=== PATIENT | female | born 1990 | race African-American/Black ===

== ENCOUNTER 2017-09-21 15:40 | Emergency (ER) | payer MEDICAID ==
[~2017-09-21] VITALS: Ht 170.2 cm; Wt 54.0 kg
[2017-09-21] MEDS ORDERED: SODIUM CHLORIDE 0.9% 1,000 ML IV ONE ×2 (17:26→20:42)
[2017-09-21] MEDS ORDERED: KETOROLAC 30MG/ML VIAL IV STA (17:26)
[2017-09-21 17:54] LABS: BASOPHILS % 0.6 % (0.0-2.0); EOSINOPHILS % 0.1 % (0.0-5.0); HEMATOCRIT. 37.1 % (36.0-48.0); HEMOGLOBIN. 12.3 g/dL (12.0-16.0); MEAN CORPUSCULAR HEMOGLOBIN 28.9 pg (28.0-32.0); MEAN CORPUSCULAR VOLUME 86.7 fL (81.0-99.0); MEAN PLATELET VOLUME 8.5 fl (7.4-10.4); MONOCYTES % 12.5 % (2.0-8.0); NEUTROPHILS % 72.8 % (40.0-76.0); PLATELET 233 x1000/uL (130-400); RED BLOOD CELL COUNT 4.27 mill/uL (4.2-5.4); RED CELL DISTRIBUTION WIDTH 12.3 % (11.6-14.6)
[2017-09-21 18:07] LABS: CARBON DIOXIDE 28 mEq/L (21-32); CHLORIDE 100 mEq/L (98-107)
[2017-09-21 18:17] LABS: HCG SCREEN NEGATIVE
[2017-09-21] MEDS ORDERED: PENICILLIN G BENZATHINE 1,200,000 UNITS/2ML SYR IM ONE (18:45)
[2017-09-21 19:20] LABS: CLARITY URINE CLEAR (CLEAR); COLOR URINE YELLOW (YELLOW); GLUCOSE URINE NEGATIVE (NEGATIVE); KETONES URINE 1+ (NEGATIVE); LEUKOCYTE ESTERASE URINE NEGATIVE (NEGATIVE); NITRITE URINE NEGATIVE (NEGATIVE); OCCULT BLOOD URINE 2+ (NEGATIVE); PH URINE 7.5 (4.5-8.0); PROTEIN URINE NEGATIVE (NEGATIVE)
[2017-09-21] MEDS ORDERED: ACETAMINOPHEN 325MG TABLET PO ONE ×2 (20:00→20:45)
[2017-09-21] MEDS ORDERED: DEXAMETHASONE 10 MG/ML VIAL IV ONE (21:45)
[2017-09-21] MEDS ORDERED: CLINDAMYCIN 600 MG in DEXTROSE 5% WATER 50 ML IV ONE (21:45)
[2017-09-21] MEDS ORDERED: IPRATROPIUM/ALBUTEROL 0.5-3(2.5)MG/3ML NEB INH PRN (22:15)
[2017-09-21] MEDS ORDERED: GUAIFENESIN 200MG/10ML SUGAR FREE UDC PO PRN (22:15)
[2017-09-21] MEDS ORDERED: MAGNESIUM/ALUMINUM HYDROXIDE/SIMETHICONE 30ML UDC PO PRN (22:15)
[2017-09-21] MEDS ORDERED: DOCUSATE SODIUM 100MG CAPSULE PO PRN (22:15)
[2017-09-21] MEDS ORDERED: DIPHENHYDRAMINE 50MG/ML VIAL IV PRN (22:15)
[2017-09-21] MEDS ORDERED: ZOLPIDEM TARTRATE 5MG TABLET PO PRN (22:15)
[2017-09-21] MEDS ORDERED: LORAZEPAM 0.5MG TABLET PO PRN (22:15)
[2017-09-21] MEDS ORDERED: KETOROLAC 15MG/ML VIAL IV PRN (22:15)
[2017-09-21] MEDS ORDERED: ACETAMINOPHEN 325MG TABLET PO PRN (22:15)
[2017-09-21] MEDS ORDERED: CLONIDINE 0.1MG TABLET PO PRN (22:15)
[2017-09-21] MEDS ORDERED: ONDANSETRON HCL 4MG/2ML VIAL IV PRN (22:15)
[2017-09-21] MEDS ORDERED: NA PHOS,M-B/NA PHOS,DI-BA ENEMA 118ML PR PRN (22:15)
[2017-09-21 22:57] VITALS: BP 107/66
[2017-09-22 01:35] LABS: *AMPHETAMINES SCREEN URINE NEGATIVE (NEGATIVE); *BARBITURATES SCREEN URINE NEGATIVE (NEGATIVE); *BENZODIAZEPINES SCREEN URINE NEGATIVE (NEGATIVE); *COCAINE SCREEN URINE NEGATIVE (NEGATIVE); METHADONE URINE SCREEN NEGATIVE (NEGATIVE); OPIATES URINE SCREEN NEGATIVE (NEGATIVE); PHENCYCLIDINE URINE SCREEN NEGATIVE (NEGATIVE)
[2017-09-22 02:51] LABS: CANNABINOID URINE SCREEN PRESUMTIVE POSITIVE (NEGATIVE)
[2017-09-22] MEDS ORDERED: CLINDAMYCIN 600 MG in DEXTROSE 5% WATER 50 ML IV SCH (06:00)
[2017-09-22] MEDS ORDERED: FAMOTIDINE 20MG/2ML VIAL IV SCH (09:00)
== END 2017-09-21 23:18 | disposition left against medical advice (07) ==
LOC: ER 16:20 → CANBEDREQ 22:57 → ER 23:18
DX: J02.9 Acute pharyngitis, unspecified (principal); R10.9 Unspecified abdominal pain; F12.10 Cannabis abuse, uncomplicated
CPT/HCPCS: 36415; 80053; 80305; 81001; 83036; 84703; 85025; 87070; 87430; 96361; 96365; 96372; 96375; 99284; J0561; J1100; J1885; J3490; J7030; Z7610; 87491; 87591; J7060

== ENCOUNTER 2018-11-15 16:25 | Emergency (ER) | payer MEDICAID | END 2018-11-15 17:22 | disposition left against medical advice (07) | LOC: ER 16:25 | DX: Z53.21 Procedure and treatment not carried out due to patient leaving prior to being seen by health care provider (principal) ==

== ENCOUNTER 2018-11-15 17:54 | Emergency (ER) | payer MEDICAID ==
[~2018-11-15] VITALS: Ht 172.7 cm; Wt 65.0 kg
[2018-11-15 21:37] VITALS: BP 115/85
== END 2018-11-15 21:40 | disposition home or self-care (01) ==
LOC: ER 17:54
DX: Z48.02 Encounter for removal of sutures (principal)
CPT/HCPCS: 99281

== ENCOUNTER 2019-10-21 16:39 | Emergency (ER) | payer MEDICAID ==
[~2019-10-21] VITALS: Ht 170.2 cm; Wt 64.0 kg
[2019-10-21] MEDS ORDERED: SODIUM CHLORIDE 0.9% 1,000 ML IV ONE (17:30)
[2019-10-21] MEDS ORDERED: ONDANSETRON HCL 4MG/2ML INJ IV ONE (17:30)
[2019-10-21] MEDS ORDERED: CEFTRIAXONE SODIUM 250 MG/VIAL IM ONE (17:30)
[2019-10-21] MEDS ORDERED: VALACYCLOVIR HCL 500MG TABLET PO ONE (17:30)
[2019-10-21] MEDS ORDERED: AZITHROMYCIN 500 MG TABLET PO ONE (17:30)
[2019-10-21 17:41] LABS: CLARITY URINE CLEAR (CLEAR); COLOR URINE YELLOW (YELLOW); KETONES URINE NEGATIVE (NEGATIVE); LEUKOCYTE ESTERASE URINE NEGATIVE (NEGATIVE); NITRITE URINE NEGATIVE (NEGATIVE); OCCULT BLOOD URINE NEGATIVE (NEGATIVE); PROTEIN URINE NEGATIVE (NEGATIVE); SPECIFIC GRAVITY URINE 1.001 (1.005-1.030); UROBILINOGEN URINE 0.2 E.U./dL (0.2-1.0)
[2019-10-21] MEDS ORDERED: METRONIDAZOLE 500MG TABLET PO NR (19:45)
[2019-10-21 20:04] VITALS: BP 111/75
[2019-10-24 08:10] LABS: CHLAMYDIA TRACHOMATIS NAA Negative (Negative); NEISSERIA GONORRHOEAE NAA Negative (Negative)
== END 2019-10-21 20:04 | disposition home or self-care (01) ==
LOC: ER 16:39
DX: T76.21XA Adult sexual abuse, suspected, initial encounter (principal); B00.9 Herpesviral infection, unspecified; N76.0 Acute vaginitis
CPT/HCPCS: 36415; 81003; 81025; 86592; 86703; 86803; 87210; 87491; 87591; 96372; 96374; 99284; J0696; J2405; J7030

== ENCOUNTER 2019-12-19 11:03 | Emergency (ER) | payer MEDICAID ==
[2019-12-19] MEDS ORDERED: LIDOCAINE HCL 1% 20ML VIAL (Pyxis) INJ INFIL ONE (13:30)
[2019-12-19] MEDS ORDERED: CEFTRIAXONE SODIUM 250 MG/VIAL IM ONE (13:30)
[2019-12-19] MEDS ORDERED: AZITHROMYCIN 500 MG TABLET PO ONE (13:30)
[2019-12-19 13:37] VITALS: BP 138/50
== END 2019-12-19 13:38 | disposition home or self-care (01) ==
LOC: ER 11:03
DX: A74.9 Chlamydial infection, unspecified (principal); A54.9 Gonococcal infection, unspecified; A64 Unspecified sexually transmitted disease
CPT/HCPCS: 81025; 87210; 87491; 87591; 96372; 99283; J0696; J3490

== ENCOUNTER 2020-01-30 09:49 | Emergency (ER) | payer MEDICAID ==
[~2020-01-30] VITALS: Ht 170.2 cm; Wt 63.2 kg
[2020-01-30 09:51] VITALS: BP 133/80
[2020-01-30 10:22] LABS: CLARITY URINE CLEAR (CLEAR); COLOR URINE YELLOW (YELLOW); KETONES URINE 3+ (NEGATIVE); LEUKOCYTE ESTERASE URINE NEGATIVE (NEGATIVE); NITRITE URINE NEGATIVE (NEGATIVE); OCCULT BLOOD URINE NEGATIVE (NEGATIVE); PROTEIN URINE NEGATIVE (NEGATIVE); SPECIFIC GRAVITY URINE 1.011 (1.005-1.030); UROBILINOGEN URINE 0.2 E.U./dL (0.2-1.0)
[2020-01-30] MEDS ORDERED: FAMOTIDINE 20MG TABLET PO ONE (10:30)
[2020-01-30] MEDS ORDERED: ONDANSETRON 4MG ODT PO ONE (10:30)
== END 2020-01-30 10:39 | disposition home or self-care (01) ==
LOC: ER 10:38
DX: K29.00 Acute gastritis without bleeding (principal); F12.10 Cannabis abuse, uncomplicated
CPT/HCPCS: 81003; 81025; 99283; Q0162

== ENCOUNTER 2020-02-21 15:09 | Emergency (ER) | payer MEDICAID ==
[~2020-02-21] VITALS: Ht 170.2 cm; Wt 58.4 kg
[2020-02-21 15:29] VITALS: BP 134/74
[2020-02-21] MEDS ORDERED: LIDOCAINE HCL 1% 20ML VIAL (Pyxis) INJ INFIL ONE (16:00)
[2020-02-21] MEDS ORDERED: AZITHROMYCIN 500 MG TABLET PO ONE (16:00)
[2020-02-21] MEDS ORDERED: CEFTRIAXONE SODIUM 1 G/VIAL IM ONE (16:00)
== END 2020-02-21 16:09 | disposition home or self-care (01) ==
LOC: ER 15:09
DX: A64 Unspecified sexually transmitted disease (principal); F12.10 Cannabis abuse, uncomplicated
CPT/HCPCS: 81025; 96372; 99283; J0696; J3490

== ENCOUNTER 2020-03-02 20:34 | Emergency (ER) | payer MEDICAID ==
[~2020-03-02] VITALS: Ht 170.2 cm; Wt 59.3 kg
[2020-03-02] MEDS ORDERED: KETOROLAC 30MG/ML VIAL IV STA (21:39)
[2020-03-02] MEDS ORDERED: SODIUM CHLORIDE 0.9% 1,000 ML IV ONE (21:39)
[2020-03-02 21:55] LABS: BASOPHILS % 1.1 % (0.0-2.0); EOSINOPHILS % 4.2 % (0.0-5.0); HEMATOCRIT. 37.6 % (36.0-48.0); HEMOGLOBIN. 12.6 g/dL (12.0-16.0); LYMPHOCYTES % 48.8 % (20.0-50.0); MEAN CORPUSCULAR HEMOGLOBIN 29.1 pg (28.0-32.0); MEAN CORPUSCULAR VOLUME 86.8 fL (81.0-99.0); MONOCYTES % 6.4 % (2.0-8.0); NEUTROPHILS % 39.5 % (40.0-76.0); PLATELET 244 x1000/uL (130-400); RED BLOOD CELL COUNT 4.33 mill/uL (4.2-5.4); RED CELL DISTRIBUTION WIDTH 12.4 % (11.6-14.6)
[2020-03-02 22:00] LABS: CHLORIDE 107 mEq/L (98-107)
[2020-03-02 22:02] LABS: CLARITY URINE CLEAR (CLEAR); COLOR URINE YELLOW (YELLOW); KETONES URINE NEGATIVE (NEGATIVE); LEUKOCYTE ESTERASE URINE NEGATIVE (NEGATIVE); NITRITE URINE NEGATIVE (NEGATIVE); OCCULT BLOOD URINE NEGATIVE (NEGATIVE); PH URINE 7.5 (4.5-8.0); PROTEIN URINE NEGATIVE (NEGATIVE); SPECIFIC GRAVITY URINE 1.006 (1.005-1.030); UROBILINOGEN URINE 0.2 E.U./dL (0.2-1.0)
[2020-03-02 23:31] VITALS: BP 107/71
== END 2020-03-02 23:34 | disposition home or self-care (01) ==
LOC: ER 20:34
DX: R07.89 Other chest pain (principal); F12.10 Cannabis abuse, uncomplicated
CPT/HCPCS: 36415; 71045; 80053; 81003; 81025; 85025; 93005; 96374; 99285; J1885; J7030

== ENCOUNTER 2020-03-31 01:12 | Emergency (ER) | payer MEDICAID ==
[~2020-03-31] VITALS: Ht 167.6 cm; Wt 55.0 kg
[2020-03-31 01:17] VITALS: BP 124/74
== END 2020-03-31 02:15 | disposition home or self-care (01) ==
LOC: ER 01:12
DX: F41.9 Anxiety disorder, unspecified (principal); T40.7X5A Adverse effect of cannabis (derivatives), initial encounter; Y92.9 Unspecified place or not applicable
CPT/HCPCS: 99283

== ENCOUNTER 2020-03-31 17:49 | Emergency (ER) | payer MEDICAID ==
[~2020-03-31] VITALS: Ht 170.2 cm; Wt 57.0 kg
[2020-03-31] MEDS ORDERED: SODIUM CHLORIDE 0.9% 1,000 ML IV ONE (18:27)
[2020-03-31] MEDS ORDERED: MORPHINE SULFATE 2 MG/ML CPJ (NOT FOR IM USE) IV ONE (18:30)
[2020-03-31 19:07] LABS: BASOPHILS % 1.2 % (0.0-2.0); EOSINOPHILS % 1.1 % (0.0-5.0); HEMATOCRIT. 39.4 % (36.0-48.0); HEMOGLOBIN. 13.2 g/dL (12.0-16.0); LYMPHOCYTES % 39.2 % (20.0-50.0); MEAN CORPUSCULAR HEMOGLOBIN 29.6 pg (28.0-32.0); MEAN CORPUSCULAR VOLUME 88.4 fL (81.0-99.0); MEAN PLATELET VOLUME 8.7 fl (7.4-10.4); MONOCYTES % 9.1 % (2.0-8.0); NEUTROPHILS % 49.4 % (40.0-76.0); PLATELET 314 x1000/uL (130-400); RED BLOOD CELL COUNT 4.45 mill/uL (4.2-5.4)
[2020-03-31 19:14] LABS: HCG SCREEN NEGATIVE
[2020-03-31 19:15] LABS: CHLORIDE 108 mEq/L (98-107); CLARITY URINE CLEAR (CLEAR); COLOR URINE YELLOW (YELLOW); KETONES URINE NEGATIVE (NEGATIVE); LEUKOCYTE ESTERASE URINE NEGATIVE (NEGATIVE); NITRITE URINE NEGATIVE (NEGATIVE); OCCULT BLOOD URINE NEGATIVE (NEGATIVE); PH URINE 8.5 (4.5-8.0); PROTEIN URINE NEGATIVE (NEGATIVE); SPECIFIC GRAVITY URINE 1.009 (1.005-1.030); UROBILINOGEN URINE 0.2 E.U./dL (0.2-1.0)
[2020-03-31 19:17] LABS: PROTHROMBIN TIME 10.7 sec (9.6-11.0)
[2020-03-31 19:20] LABS: ETHANOL BLOOD < 10 mg/dL
[2020-03-31 19:29] LABS: *AMPHETAMINES SCREEN URINE NEGATIVE (NEGATIVE); *BARBITURATES SCREEN URINE NEGATIVE (NEGATIVE); *BENZODIAZEPINES SCREEN URINE NEGATIVE (NEGATIVE); *COCAINE SCREEN URINE NEGATIVE (NEGATIVE); METHADONE URINE SCREEN NEGATIVE (NEGATIVE); OPIATES URINE SCREEN NEGATIVE (NEGATIVE); PHENCYCLIDINE URINE SCREEN NEGATIVE (NEGATIVE)
[2020-03-31 19:31] LABS: CANNABINOID URINE SCREEN PRESUMTIVE POSITIVE (NEGATIVE)
[2020-03-31 22:12] VITALS: BP 114/67
== END 2020-03-31 22:14 | disposition home or self-care (01) ==
LOC: ER 17:49
DX: F41.1 Generalized anxiety disorder (principal); H57.13 Ocular pain, bilateral; K29.70 Gastritis, unspecified, without bleeding
CPT/HCPCS: 36415; 70450; 71045; 80053; 80305; 80320; 81003; 81025; 83605; 84703; 85025; 85610; 96361; 96374; 99285; J2270; J7030; G0480

== ENCOUNTER 2020-04-02 18:49 | Emergency (ER) | payer MEDICAID ==
[~2020-04-02] VITALS: Ht 172.7 cm; Wt 55.0 kg
[2020-04-02] MEDS ORDERED: IBUPROFEN 600MG TABLET PO ONE (19:30)
[2020-04-02] MEDS ORDERED: BACITRACIN ZINC OINT UDPKT TOP ONE (19:30)
[2020-04-02 19:48] VITALS: BP 127/83
[2020-04-02] MEDS ORDERED: TETANUS, DIPHTHERIA, PERTUSSIS VAC/PF 0.5ML (>7YR OLD) IM ONE (21:15)
== END 2020-04-02 21:25 | disposition home or self-care (01) ==
LOC: ER 19:28
DX: S60.511A Abrasion of right hand, initial encounter (principal); V49.88XA Car occupant (driver) (passenger) injured in other specified transport accidents, initial encounter; Y93.89 Activity, other specified; Y92.410 Unspecified street and highway as the place of occurrence of the external cause
CPT/HCPCS: 73130; 81025; 90471; 90715; 99283

== ENCOUNTER 2020-05-21 21:28 | Emergency (ER) | payer MEDICAID ==
[~2020-05-21] VITALS: Ht 170.2 cm; Wt 59.0 kg
[2020-05-21 21:57] VITALS: BP 130/94
[2020-05-21] MEDS ORDERED: FLUCONAZOLE 100MG TABLET PO ONE (22:30)
[2020-05-21] MEDS ORDERED: FLUCONAZOLE 150MG TABLET PO NR (22:45)
[2020-05-21 23:50] LABS: CLARITY URINE CLEAR (CLEAR); COLOR URINE YELLOW (YELLOW); KETONES URINE NEGATIVE (NEGATIVE); LEUKOCYTE ESTERASE URINE NEGATIVE (NEGATIVE); NITRITE URINE NEGATIVE (NEGATIVE); OCCULT BLOOD URINE NEGATIVE (NEGATIVE); PH URINE 6.5 (4.5-8.0); PROTEIN URINE NEGATIVE (NEGATIVE); SPECIFIC GRAVITY URINE 1.019 (1.005-1.030); UROBILINOGEN URINE 0.2 E.U./dL (0.2-1.0)
[2020-05-24 04:07] LABS: NEISSERIA GONORRHOEAE NAA Negative (Negative)
== END 2020-05-22 00:16 | disposition home or self-care (01) ==
LOC: ER 21:28
DX: N76.0 Acute vaginitis (principal); B37.3 Candidiasis of vulva and vagina; A64 Unspecified sexually transmitted disease; F12.10 Cannabis abuse, uncomplicated
CPT/HCPCS: 81003; 81025; 87491; 87591; 99283

== ENCOUNTER 2020-07-12 17:30 | Emergency (ER) | payer MEDICAID ==
[~2020-07-12] VITALS: Ht 170.2 cm; Wt 59.1 kg
[2020-07-12 17:36] VITALS: BP 121/85
== END 2020-07-12 17:48 | disposition left against medical advice (07) ==
LOC: ER 17:38
DX: Z53.21 Procedure and treatment not carried out due to patient leaving prior to being seen by health care provider (principal)

== ENCOUNTER 2020-07-12 18:53 | Emergency (ER) | payer MEDICAID ==
[~2020-07-12] VITALS: Ht 172.7 cm; Wt 56.0 kg
[2020-07-12 19:11] VITALS: BP 107/74
[2020-07-12 20:27] LABS: CLARITY URINE CLEAR (CLEAR); COLOR URINE YELLOW (YELLOW); KETONES URINE NEGATIVE (NEGATIVE); LEUKOCYTE ESTERASE URINE NEGATIVE (NEGATIVE); NITRITE URINE NEGATIVE (NEGATIVE); OCCULT BLOOD URINE NEGATIVE (NEGATIVE); PROTEIN URINE NEGATIVE (NEGATIVE); SPECIFIC GRAVITY URINE 1.014 (1.005-1.030); UROBILINOGEN URINE 0.2 E.U./dL (0.2-1.0)
[2020-07-15 04:07] LABS: NEISSERIA GONORRHOEAE NAA Negative (Negative)
== END 2020-07-12 21:10 | disposition home or self-care (01) ==
LOC: ER 18:53
DX: A64 Unspecified sexually transmitted disease (principal); B37.3 Candidiasis of vulva and vagina; L03.019 Cellulitis of unspecified finger; F12.10 Cannabis abuse, uncomplicated
CPT/HCPCS: 81003; 87491; 87591; 99283

== ENCOUNTER 2020-07-29 16:01 | Emergency (ER) | payer MEDICAID ==
[~2020-07-29] VITALS: Ht 172.7 cm; Wt 61.0 kg
[2020-07-29] MEDS ORDERED: AZITHROMYCIN 500 MG TABLET PO ONE (18:00)
[2020-07-29] MEDS ORDERED: CEFTRIAXONE SODIUM 250 MG/VIAL IM ONE (18:00)
[2020-07-29] MEDS ORDERED: IBUPROFEN 600MG TABLET PO ONE (18:00)
[2020-07-29] MEDS ORDERED: METRONIDAZOLE 500MG TABLET PO ONE (18:15)
[2020-07-29] MEDS ORDERED: FLUCONAZOLE 100MG TABLET PO ONE (18:15)
[2020-07-29] MEDS ORDERED: FLUCONAZOLE 150MG TABLET PO NR (18:30)
[2020-07-29 19:08] VITALS: BP 115/78
[2020-08-01 14:08] LABS: NEISSERIA GONORRHOEAE NAA Negative (Negative)
[2020-08-01 14:08] LABS: NEISSERIA GONORRHOEAE NAA Negative (Negative)
== END 2020-07-29 19:11 | disposition home or self-care (01) ==
LOC: ER 16:01
DX: A64 Unspecified sexually transmitted disease (principal); B37.3 Candidiasis of vulva and vagina; F12.10 Cannabis abuse, uncomplicated
CPT/HCPCS: 87491; 87591; 96372; 99284; J0696

== ENCOUNTER 2020-09-28 16:14 | Emergency (ER) | payer MEDICAID ==
[~2020-09-28] VITALS: Ht 175.3 cm; Wt 59.0 kg
[2020-09-28 16:21] VITALS: BP 113/66
== END 2020-09-28 18:38 | disposition left against medical advice (07) ==
LOC: ER 16:14
DX: Z53.21 Procedure and treatment not carried out due to patient leaving prior to being seen by health care provider (principal)
CPT/HCPCS: 81025

== ENCOUNTER 2020-09-30 15:50 | Emergency (ER) | payer MEDICAID ==
[~2020-09-30] VITALS: Ht 170.2 cm; Wt 59.0 kg
[2020-09-30 16:07] VITALS: BP 107/64
[2020-09-30 17:22] LABS: COLOR URINE YELLOW (YELLOW); KETONES URINE NEGATIVE (NEGATIVE); LEUKOCYTE ESTERASE URINE TRACE (NEGATIVE); NITRITE URINE NEGATIVE (NEGATIVE); OCCULT BLOOD URINE NEGATIVE (NEGATIVE); PROTEIN URINE NEGATIVE (NEGATIVE); SPECIFIC GRAVITY URINE 1.014 (1.005-1.030); UROBILINOGEN URINE 0.2 E.U./dL (0.2-1.0)
[2020-09-30 17:30] LABS: CLARITY URINE SLIGHTLY HAZY (CLEAR)
[2020-09-30] MEDS ORDERED: CEFTRIAXONE SODIUM 250 MG/VIAL IM ONE (18:15)
[2020-09-30] MEDS ORDERED: AZITHROMYCIN 500 MG TABLET PO ONE (18:15)
[2020-09-30] MEDS ORDERED: ONDANSETRON 4MG ODT PO ONE (18:15)
== END 2020-09-30 18:23 | disposition home or self-care (01) ==
LOC: ER 15:50
DX: L25.9 Unspecified contact dermatitis, unspecified cause (principal); F12.10 Cannabis abuse, uncomplicated
CPT/HCPCS: 81003; 81025; 87210; 87491; 87591; 96372; 99283; J0696; Q0162

== ENCOUNTER 2020-11-02 21:54 | Emergency (ER) | payer MEDICAID ==
[~2020-11-02] VITALS: Ht 170.2 cm; Wt 60.7 kg
[2020-11-02 22:10] VITALS: BP 103/65
[2020-11-02] MEDS ORDERED: DIPHENHYDRAMINE 50MG CAPSULE PO ONE (22:15)
== END 2020-11-02 22:22 | disposition home or self-care (01) ==
LOC: ER 21:54
DX: L30.9 Dermatitis, unspecified (principal); L40.9 Psoriasis, unspecified; F12.10 Cannabis abuse, uncomplicated
CPT/HCPCS: 99283; Q0163